=== PATIENT | male | born 1975 | race Caucasian/White ===

== ENCOUNTER 2024-11-09 08:38 | Emergency (ER) | payer OTHER, SELFPAY ==
--- NOTE | 2024-11-09 08:43 | ED_ITS ---
HPI - General Adult General Chief complaint: Upper Respiratory Infection Stated complaint: Chills, Ringing in Ears, Headache, Fever Time Seen by Provider: 11/09/24 08:43 Source: patient Mode of arrival: ambulatory Limitations: no limitations History of Present Illness HPI narrative: 49-year-old male patient presents to the [facility] with complaints of fevers body aches and chills for the past 5 days. Patient states that body aches and chills really started on Sunday this past week. Patient states before that he was feeling fatigued but did have any other symptoms. Patient states he has had a low-grade fever yesterday of about 99 but continued to have some body aches and chills. Denies any other symptoms. Denies any runny nose, coughing, ear pain, sore throat. Denies chest pain or shortness of breath. Denies abdominal pain, nausea, vomiting or diarrhea. Denies any pain with urination. Patient states that the fever body aches and chills do resolve when using Tylenol and Motrin. Related Data Home Medications ?Medication ?Instructions ?Recorded ?Confirmed ?Last Taken ?Type No Home Medications 11/09/24 11/09/24 Unknown History Allergies Allergy/AdvReac Type Severity Reaction Status Date / Time No Known Allergies Allergy Mild Verified 11/09/24 08:51 Review of Systems Review of Systems: CONSTITUTIONAL: Positive low-grade fever, positive body aches and chills, positive sweats. EYES: Denies visual changes, redness, or discharge. ENT: Denies rhinorrhea, congestion, sore throat, or otalgia. CARDIOVASCULAR: Denies chest pain, palpitations, or edema. RESPIRATORY: Denies cough or dyspnea. GASTROINTESTINAL: Denies abdominal pain, nausea, vomiting, or diarrhea. GENITOURINARY: Denies dysuria or hematuria. SKIN: Denies rash or itching. MUSCULOSKELETAL: Denies back pain, joint pain, or myalgia. NEUROLOGIC: Denies headache, numbness, or weakness. PSYCHIATRIC: Denies anxiety or depression. [facility] Past Medical History Medical History (Updated 11/09/24 @ 09:21 by ABI Aquino) No significant past medical history Comments At the time of my signature I agree with nursing past medical history, surgical, social, and family history. There is no relevant family history pertinent to the presenting complaint. Exam Narrative: GENERAL: Well-appearing, well-nourished, and in no acute distress. HEAD: Normocephalic, atraumatic. EYES: PERRLA and EOMI. ENT: Nares clear, no rhinorrhea or epistaxis. Mucous membranes moist. posterior pharynx with no erythema, tonsillar enlargement, exudates or lesions present. Bilateral TMs are clear no erythema or foreign bodies the canal. NECK: Supple. No lymphadenopathy CHEST: Clear to auscultation. No respiratory distress. HEART: Regular rate and rhythm. No murmur heard. Normal peripheral pulses. ABDOMEN: Soft, nontender, nondistended, normal active bowel sounds. EXTREMITIES: Normal range of motion. No edema. SKIN: Warm, dry, no rash. NEURO: No focal deficits. Alert and oriented x3. Course Course Level of Care: Express Care Visit Reevaluation(s) Reevaluation #1: re-evaluated patient notified him that his point of care testing is negative. Discussed with him most likely he is on the tail end of some type of virus which was causing the symptoms however if his fevers, body aches or chills continue after today then I would highly recommend that he follow-up with his primary doctor and get blood work to assess if there is anything else going on. Patient verbalized understanding denies any other questions or concerns at this time. Date: 11/09/24 Time: 09:23 Vital Signs Vital signs: Vital Signs Temperature 36.1 C L 11/09/24 08:51 Pulse Rate 69 11/09/24 08:51 Respiratory Rate 16 11/09/24 08:51 Blood Pressure 107/61 11/09/24 08:51 Pulse Oximetry 100 11/09/24 08:51 Temperature 36.1 C L 11/09/24 08:51 Pulse Rate 69 11/09/24 08:51 Respiratory Rate 16 11/09/24 08:51 Blood Pressure 107/61 11/09/24 08:51 Pulse Oximetry 100 11/09/24 08:51 Vital signs reviewed. Medical Decision Making MDM Narrative Medical decision making narrative: Plan of care patient is to swab him today for influenza and COVID since he has been having low-grade fevers body aches and chills. Discussed with patient that if this is negative and if he continues to have body aches chills and low-grade fevers after today then he needs to see his primary doctor for further assessment and most likely blood work. Patient verbalized understanding denies any other questions or concerns at this time. Differential Diagnosis Differential Diagnosis: Differential diagnosis: Allergic rhinitis, chronic sinusitis, tonsillitis, acute sinusitis, infectious mononucleosis, seasonal influenza, pertussis, diphtheria, meningococcal disease, viral syndrome, viral bronchitis, RSV, COVID- 19 Vital Signs Vital Signs: Vital Signs Temperature 36.1 C L 11/09/24 08:51 Pulse Rate 69 11/09/24 08:51 Respiratory Rate 16 11/09/24 08:51 Blood Pressure 107/61 11/09/24 08:51 Pulse Oximetry 100 11/09/24 08:51 Temperature 36.1 C L 11/09/24 08:51 Pulse Rate 69 11/09/24 08:51 Respiratory Rate 16 11/09/24 08:51 Blood Pressure 107/61 11/09/24 08:51 Pulse Oximetry 100 11/09/24 08:51 Lab Data Labs: Lab Results 11/09/24 Range/Units 09:13 POC Influenza A Ag Negative (Negative) POC Influenza B Ag Negative (Negative) POC SARS CoV-2 Ag Negative (Negative) Critical Care Time Critical Care Time Critical Care Time: No Discharge Plan Discharge Clinical Impression: Viral URI Patient Disposition: Home Condition: Stable Instructions: Antibiotic Form, Viral Syndrome (ED) Additional Instructions: Viral illness may last between 7-12days; antibiotic is NOT recommended at this time. Recommend antihistamine such as Benadryl at night time and Claritin/Zyrtec/Layne during the day Cough syrup may cause drowsiness; avoid driving or take it at night time. Also, recommend symptomatic treatment includes: rest, fluids, and increase humidity of the air at home. Recommend Acetaminophen or nonsteroidal anti-inflammatory agents (NSAIDs) as directed in the bottle to reduce fever and/pain/headache. Avoid smoking/second-hand smoke. Limit visits to areas with large crowds. Please schedule a follow-up visit with your personal physician for further evaluation and treatment within 3-5days. Including recheck and discussion of your blood pressure. If your symptoms persist, change or worsen significantly before you can contact your personal physician then please, without delay, go to the emergency department for further evaluation. Patient Language: Maori Prescriptions: No Action No Home Medications Follow-up/Referrals: PHYSICIAN NOT ON STAFF,NONSTAFF [Primary Care Provider] - Time of Disposition: 09:21
[2024-11-09 08:51] VITALS: BP 107/61; PULSE 69; RESP 16; TEMP 36.1; O2SAT 100
[2024-11-09 09:14] LABS: EDCOVIDSCREEN Negative (Negative); EDINFLUASCREEN Negative (Negative); EDINFLUBSCREEN Negative (Negative)
== END 2024-11-09 09:23 | disposition home or self-care (01) ==
PROVIDERS: Emergency Provider Nurse Practitioner Family
DX: J06.9 Acute upper respiratory infection, unspecified (principal); Z20.822 Contact with and (suspected) exposure to COVID-19
CPT/HCPCS: 87426; 87804; 99202; G0463

== ENCOUNTER 2024-11-14 12:17 | Outpatient (CLI) | payer OTHER, SELFPAY ==
--- NOTE | ~2024-11-14 | US_ITS ---
Limited Abdominal Sonogram: Real-time sonographic imaging of the right upper quadrant was performed. Clinical History: Abnormal LFTs Findings: The liver appears normal with no evidence of mass lesion or bile duct dilatation. Main por donato vein demonstrates normal direction of flow. The gallbladder is well distended, and demonstrates 3 mm gallbladder wall polyp. The common bile duct measures 3 mm. The visualized pancreas, aorta, and IVC are unremarkable. Impression: 3 mm gallbladder wall polyp. Reviewed, dictated and finalized at location . Impression: 3 mm gallbladder wall polyp.
== END 2024-11-14 12:18 | disposition home or self-care (01) ==
LOC: GOSHIMG 12:18
DX: R79.89 Other specified abnormal findings of blood chemistry (principal); K82.4 Cholesterolosis of gallbladder
CPT/HCPCS: 76705

== ENCOUNTER 2025-03-20 08:23 | Emergency (ER) | payer OTHER, SELFPAY ==
[2025-03-20 08:39] VITALS: BP 109/65; PULSE 71; RESP 18; TEMP 36.1; O2SAT 100
[2025-03-20 08:57] LABS: EDCOVIDSCREEN Negative (Negative); EDINFLUASCREEN Negative (Negative); EDINFLUBSCREEN Negative (Negative); EDSTREPNEGPOS1 Negative (Negative)
--- NOTE | 2025-03-20 09:14 | ED.URI ---
HPI - URI/Sore Throat General Chief Complaint: Upper Respiratory Infection Stated Complaint: Cold Symptoms Time Seen by Provider: 03/20/25 09:14 History of Present Illness HPI Narrative: 50-year-old male presented for complaint of nasal congestion and drainage, sore throat and cough. Onset 3 days. He denies associated shortness of breath, wheezing, nausea vomiting diarrhea, fevers or chills. He is taking DayQuil. Related Data Allergies Allergy/AdvReac Type Severity Reaction Status Date / Time No Known Allergies Allergy Mild Verified 03/20/25 09:01 Review of Systems Review of Systems: CONSTITUTIONAL: Denies body aches, fever, chills, or sweats. EYES: Denies visual changes, redness, or discharge. ENT: reports sore throat rhinorrhea, congestion CARDIOVASCULAR: Denies chest pain, palpitations, or edema. RESPIRATORY: reports cough Denies dyspnea. GASTROINTESTINAL: Denies abdominal pain, nausea, vomiting, or diarrhea. SKIN: Denies rash NEUROLOGIC: Denies headache PMFSH Past Medical History Medical History (Updated 03/20/25 @ 09:20 by Macrina Ni APRN) No significant past medical history Social History Social History (Updated 03/20/25 @ 09:22 by Macrina Ni APRN) Smoking status: Current every day smoker Tobacco type: cigarettes Exam Narrative: GENERAL: well-appearing, no acute distress. EYES: conjunctivae clear ENT: Mucous membranes moist. TM pearly finley with normal light reflex bilaterally; no tragal tenderness. Oropharynx erythematous without lesions. Tonsils enlarged 1+ and without exudate. No drooling, no hoarseness, no trismus, uvula midline. No tripod positioning, hot potato voice, or soft palate swelling. NECK: Supple. No lymphadenopathy CHEST: Clear to auscultation, breath sounds equal. No respiratory distress, speaks in full sentences. HEART: Regular rate and rhythm. No murmur heard. SKIN: Warm, dry, no rash. NEURO: Alert and oriented x3. Course Course Emergency Course: Patient is aware of diagnosis, understands and agrees to treatment plan. Anticipatory guidance given. Patient agrees to follow-up as directed and is aware of reasons to seek care at the emergency department. Portions of this record may have been created with voice recognition software Level of Care: Express Care Visit Vital Signs Vital signs: Vital Signs Temperature 97.0 F L 03/20/25 08:39 Pulse Rate 71 03/20/25 08:39 Respiratory Rate 18 03/20/25 08:39 Blood Pressure 109/65 03/20/25 08:39 Pulse Oximetry 100 03/20/25 08:39 Oxygen Delivery Room Air 03/20/25 08:39 Temperature 97.0 F L 03/20/25 08:39 Pulse Rate 71 03/20/25 08:39 Respiratory Rate 18 03/20/25 08:39 Blood Pressure 109/65 03/20/25 08:39 Pulse Oximetry 100 03/20/25 08:39 Oxygen Delivery Room Air 03/20/25 08:39 MDM - URI/Sore Throat MDM Narrative Medical decision making narrative: negative flu, COVID, strep result reviewed with pt. Advise supportive treatments. Patient is appropriate for outpatient treatment and follow-up. Differential Diagnosis Differential diagnosis: Likely upper respiratory infection, viral infection and pharyngitis Lab Data Labs: Lab Results 03/20/25 Range/Units 08:34 POC Influenza A Ag Negative (Negative) POC Influenza B Ag Negative (Negative) POC SARS CoV-2 Ag Negative (Negative) POC Grp A Strep Screen Negative (Negative) Discharge Plan Discharge Clinical Impression: Upper respiratory infection Patient Disposition: Home Condition: Stable Instructions: Antibiotic Form, Upper Respiratory Infection (ED) Additional Instructions: Flu COVID negative. Rapid strep swab was negative today You will be notified in a few days if the culture comes back positive for strep, and appropriate antibiotics will be called in at that time. if symptoms are due to a viral illness, it is not treated with antibiotics. Viral symptoms can be present for up to 10-14 days. Recommendations: Flonase spray and Zyrtec for sinus congestion Cough syrup may cause drowsiness; avoid driving or take it at night time. Tylenol every 8 hours as needed for pain/fever Soft foods, cool liquids, warm tea. Gargle with warm saltwater twice a day. Chloraseptic spray and throat lozenges. Rest and stay hydrated. --Follow up with your PCP --Go to the ER immediately if you cannot swallow your saliva, trouble breathing/wheezing, throat swelling, pain is persistent and severe Patient Language: Ukrainian Prescriptions: New benzonatate 200 mg capsule 200 mg PO TID PRN (Reason: cough) Qty: 20 0RF prednisone 20 mg tablet 40 mg PO DAILY 5 Days Qty: 10 0RF Follow-up/Referrals: PHYSICIAN,CAMERA SYSTEMS ENGINEER [Primary Care Provider, Internal Medicine] Time of Disposition: 09:21
== END 2025-03-20 09:27 | disposition home or self-care (01) ==
PROVIDERS: Emergency Provider Nurse Practitioner Family
DX: J06.9 Acute upper respiratory infection, unspecified (principal); Z20.822 Contact with and (suspected) exposure to COVID-19
CPT/HCPCS: 87081; 87426; 87804; 87880; 99213; G0463

== ENCOUNTER 2025-03-26 08:03 | Emergency (ER) | payer OTHER, SELFPAY ==
--- NOTE | 2025-03-26 08:19 | ED_ITS ---
HPI - URI/Sore Throat General Chief Complaint: Upper Respiratory Infection Stated Complaint: COUGH/CONGESTION Source: patient and RN notes reviewed Mode of arrival: ambulatory Limitations: no limitations History of Present Illness HPI Narrative: 50 y/o male presented for c/o cough for over one week. Endorses cough is moist but nonproductive. Pt was seen in clinic 6 days ago for the same plus nasal congestion which has improved. He completed steroids and has been taking benzonate as needed, but says cough is persistent. Cough is worse at night. Denies associated sob, wheezing, fatigue, cp, n/v/d/f/c. Occasional smoker. MD elicited complaint: cough Related Data Allergies Allergy/AdvReac Type Severity Reaction Status Date / Time No Known Allergies Allergy Mild Verified 03/26/25 08:19 Review of Systems Review of Systems: CONSTITUTIONAL: denies malaise, body aches, chills, sweats, fever EYES: Denies visual changes, redness, or discharge ENT: Reports rhinorrhea, congestion, denies sinus pain, otalgia, sore throat CARDIOVASCULAR: Denies chest pain, palpitations, edema RESPIRATORY: Reports cough, post nasal drainage. Denies dyspnea GASTROINTESTINAL: Denies abdominal pain, nausea, vomiting, diarrhea SKIN: Denies rash NEUROLOGIC: Denies headache PMFSH Past Medical History Medical History No significant past medical history Social History Social History Smoking status: Current every day smoker Tobacco type: cigarettes Exam Narrative: GENERAL: well-appearing ENT: Mucous membranes moist. TM pearly finley with dull light reflex bilaterally; no tragal tenderness. Oropharynx erythematous without lesions or exudate, no drooling, no hoarseness, no trismus, uvula midline. CHEST: breath sounds equal. Scattered coarse, wheezing. Moist storage engineer cough. No respiratory distress, speaks in full sentences. HEART: Regular rate and rhythm. No murmur heard. SKIN: Warm, dry, no rash. NEURO: Alert and oriented x3. PSYCH: Normal mood and affect Course Course Emergency Course: Patient is aware of diagnosis, understands and agrees to treatment plan. Anticipatory guidance given. Patient agrees to follow-up as directed and is aware of reasons to seek care at the emergency department. Portions of this record may have been created with voice recognition software Level of Care: Express Care Visit Vital Signs Vital signs: Vital Signs Temperature 97.8 F 03/26/25 08:23 Pulse Rate 94 03/26/25 08:23 Respiratory Rate 16 03/26/25 08:23 Blood Pressure 116/74 03/26/25 08:23 Pulse Oximetry 98 03/26/25 08:23 Temperature 97.8 F 03/26/25 08:23 Pulse Rate 94 03/26/25 08:23 Respiratory Rate 16 03/26/25 08:23 Blood Pressure 116/74 03/26/25 08:23 Pulse Oximetry 98 03/26/25 08:23 reviewed MDM - URI/Sore Throat MDM Narrative Medical decision making narrative: Discussed physical exam findings c/w lower respiratory infection, reviewed RX. Will add additional course of steroids and ABX. Advised supportive measures and signs/symptoms to go to the ER. Pt is appropriate for outpt treatment and f/u. Differential Diagnosis Differential diagnosis: Likely upper respiratory infection, sinusitis and viral infection Discharge Plan Discharge Clinical Impression: Bronchitis Patient Disposition: Home Condition: Stable Instructions: Antibiotic Form, Acute Bronchitis (ED) Additional Instructions: Take medication as directed Recommend Flonase spray and Zyrtec (or Claritin/Layne) over the counter Cough syrup may cause drowsiness; avoid driving or take it at night time. Tylenol every 8 hours as needed for pain Symptomatic treatment includes: rest, fluids, and increase humidity of the air at home. Follow up with your primary care provider as needed in 1 week Go to the ER for worsening symptoms or concerns Patient Language: Luxembourgish Prescriptions: New benzonatate 200 mg capsule 200 mg PO TID PRN (Reason: cough) Qty: 20 0RF prednisone 50 mg tablet 50 mg PO DAILY Qty: 5 0RF amoxicillin-pot clavulanate 875-125 mg tablet 1 tablet PO Q12H 7 Days Qty: 14 0RF Follow-up/Referrals: Nael,Chris [Other] Time of Disposition: 08:37
[2025-03-26 08:23] VITALS: BP 116/74; PULSE 94; RESP 16; TEMP 36.6; O2SAT 98
== END 2025-03-26 09:01 | disposition home or self-care (01) ==
PROVIDERS: Emergency Provider Nurse Practitioner Family
DX: J40 Bronchitis, not specified as acute or chronic (principal); F17.210 Nicotine dependence, cigarettes, uncomplicated
CPT/HCPCS: 99213; G0463